=== PATIENT | male | born 1990 | race Caucasian/White ===

== ENCOUNTER 2020-01-09 16:44 | Emergency (ER) | payer BC, OTHER ==
[2020-01-09] MEDS ORDERED: ACETAMINOPHEN 325 MG TABLET PO ONE (18:16)
--- NOTE | 2020-01-09 18:18 | ER Document Report ---
ED Medical Screen (RME) - General Chief Complaint: Leg Pain Stated Complaint: FALL/LEFT LEG PAIN Time Seen by Provider: 01/09/20 18:09 Mode of Arrival: Ambulatory Information source: Patient Notes: 29-year-old male presented to ED for complaint of pain shooting down the left leg from the duncan for the last 2 weeks. He states he also has numbness to the lateral aspect of the leg. He states he fell down some stairs and hit some cigarettes that his mother had on the stairs about 2 weeks ago. He does have redness and swelling to the front of his left leg. 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 He does not smoke he does drink weekly does not use any illicit drugs. 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 He does live with his significant other. Blood pressure and pulse are both elevated I have greeted and performed a rapid initial assessment of this patient. A comprehensive ED assessment and evaluation of the patient, analysis of test results and completion of medical decision making process will be conducted by an additional ED providers. - Related Data Allergies/Adverse Reactions: No Known Allergies Allergy (Verified 01/09/20 18:01) Past Medical History - Social History Frequency of alcohol use: Occasional Drug Abuse: None Physical Exam - Vital signs Vitals: Temp Pulse Resp BP Pulse Ox 98.6 F 111 H 16 175/102 H 97 01/09/20 16:49 01/09/20 16:49 01/09/20 16:49 01/09/20 16:49 01/09/20 16:49 Course - Vital Signs Vital signs: Temp Pulse Resp BP Pulse Ox 98.6 F 111 H 16 175/102 H 97 01/09/20 16:49 01/09/20 16:49 01/09/20 16:49 01/09/20 16:49 01/09/20 16:49
[2020-01-09 19:00] LABS: ABSOLUTE BASOPHILS # (AUTO) 0.1 10^3/uL (0.0-0.2); ABSOLUTE EOSINOPHILS # (AUTO) 0.1 10^3/uL (0.0-0.6); ABSOLUTE LYMPHOCYTES (AUTO) 1.9 10^3/uL (0.5-4.7); ABSOLUTE MONOCYTES (AUTO) 0.7 10^3/uL (0.1-1.4); ABSOLUTE NEUT (AUTO) 7.1 10^3/uL (1.7-8.2); BASOPHILS % (AUTO) 0.8 % (0-2); EOSINOPHILS % (AUTO) 1.5 % (0-6); HEMOGLOBIN 16.2 g/dL (13.5-17.0); LYMPHOCYTES % (AUTO) 19.5 % (13-45); MEAN CORPUSCULAR HEMOGLOBIN 29.6 pg (27.0-33.4); MEAN CORPUSCULAR VOLUME 82 fl (80-97); MONOCYTES % (AUTO) 6.9 % (3-13); PLATELET COUNT 216 10^3/uL (150-450); RED BLOOD COUNT 5.47 10^6/uL (4.35-5.55); RED CELL DISTRIBUTION WIDTH 13.7 % (11.5-14.0); SEGMENTED NEUTROPHILS % (AUTO) 71.3 % (42-78); TOTAL CELLS COUNTED % (AUTO) 100 %; WHITE BLOOD COUNT 9.9 10^3/uL (4.0-10.5)
[2020-01-09 19:08] LABS: ALBUMIN 4.7 g/dL (3.5-5.0); ALKALINE PHOSPHATASE 70 U/L (38-126); ANION GAP 8 (5-19); ASPARTATE AMINO TRANSFERASE 45 U/L (17-59); BILIRUBIN,DIRECT 0.1 mg/dL (0.0-0.4); BILIRUBIN,TOTAL 0.7 mg/dL (0.2-1.3); BLOOD UREA NITROGEN 18 mg/dL (7-20); CALCIUM 9.7 mg/dL (8.4-10.2); CARBON DIOXIDE 25 mmol/L (22-30); CHLORIDE 106 mmol/L (98-107); GLUCOSE 104 mg/dL (75-110); POTASSIUM 4.3 mmol/L (3.6-5.0); TOTAL PROTEIN 7.7 g/dL (6.3-8.2)
--- NOTE | 2020-01-09 19:08 | RADIOLOGY REPORT (SQ) ---
EXAM DESCRIPTION: TIBIA FIBULA LEFT IMAGES COMPLETED DATE/TIME: 01/09/2020 6:47 pm REASON FOR STUDY: Fell about 2 weeks ago fell on some glass downstai COMPARISON: None. NUMBER OF VIEWS: Two views. TECHNIQUE: Two radiographic images acquired of the left tibia and fibula to include the knee and ank le in at least one projection. LIMITATIONS: None. FINDINGS: MINERALIZATION: Normal. BONES: No acute fracture or dislocation. No worrisome bone lesions. SOFT TISSUES: No radiopaque foreign body. OTHER: No other significant finding. IMPRESSION: No fracture or radiopaque foreign body. TECHNICAL DOCUMENTATION: JOB ID: [id number] 2010 [employer]- All Rights Reserved Reading location - IP/workstation name: [email or web address]
[2020-01-09] MEDS ORDERED: DIPH/PERTUSS(ACELL)/TETANUS VAC/PF 0.5 ML SYR (>=10YO) IM ONE (20:14)
[2020-01-09] MEDS ORDERED: CEPHALEXIN 500 MG CAPSULE PO ONE (20:15)
[2020-01-09] MEDS ORDERED: IBUPROFEN 600 MG TABLET PO ONE (20:15)
--- NOTE | 2020-01-09 20:23 | ER Document Report ---
ED Extremity Problem, Lower - General Chief Complaint: Leg Pain Stated Complaint: FALL/LEFT LEG PAIN Time Seen by Provider: 01/09/20 18:09 Primary Care Provider: SACHA SCHROEDER JR, DO [ACTIVE PROVISIONAL STAFF] - Follow up as needed Mode of Arrival: Ambulatory Notes: CHIEF COMPLAINT: Left leg injury 2 weeks ago HPI: 29-year-old male presenting to the emergency department complaining of in jury to the anterior left lower leg 2 weeks ago. Patient slipped on something on the step and struck the anterior portion of the left leg on the step. Patient did sustain an abrasion at the time states he is not up-to-date on his tetanus vaccination. Patient complains of continued pain to the leg with some redness now overlying the anterior leg. No fever. ROS: See HPI - all other systems were reviewed and are otherwise negative Constitutional: no fever Integumentary: + rash Allergy: no hives Musculoskeletal: + extremity pain or swelling Neurological: + numbness/tingling, no weakness MEDICATIONS: I agree with the patient medications as charted by the RN. ALLERGIES: I agree with the allergies as charted by the RN. PAST MEDICAL HISTORY/PAST SURGICAL HISTORY: Reviewed and agree as charted by RN. SOCIAL HISTORY: Reviewed and agree as charted by RN. FAMILY HISTORY: No significant familial comorbid conditions directly related to patient complaint EXAM: Reviewed vital signs as charted by RN. CONSTITUTIONAL: Alert and oriented and responds appropriately to questions. Well-appearing; well-nourished HEAD: Normocephalic; atraumatic EYES: Conjunctivae clear, sclerae non-icteric ENT: normal nose; no rhinorrhea; moist mucous membranes NECK: Supple without meningismus CARD: RRR; no murmurs, no clicks, no rubs, no gallops; symmetric distal pulses RESP: Normal chest excursion without splinting or tachypnea ABD/GI: non-distended BACK: The back appears normal EXT: Normal ROM in all joints; no cyanosis, no effusions, there is slight soft tissue swelling over the anterior left tibial region with a small abrasion present in the mid tibial region. There is tenderness on palpation overlying the anterior left lower leg. There does appear to be some erythema without induration or fluctuance over the anterior leg extending from the knee to the level of the ankle. There is some increased warmth in this area. SKIN: Normal color for age and race; warm; dry; good turgor NEURO: Moves all extremities equally; Motor and sensory function intact PSYCH: The patient's mood and manner are appropriate. Grooming and personal hygiene are appropriate. MDM: 29-year-old male with injury to the anterior left lower leg. - Related Data Allergies/Adverse Reactions: No Known Allergies Allergy (Verified 01/09/20 18:54) Past Medical History - General Information source: Patient - Social History Smoking Status: Never Smoker Frequency of alcohol use: Occasional Drug Abuse: None Family History: Reviewed & Not Pertinent Physical Exam - Vital signs Vitals: Temp Pulse Resp BP Pulse Ox 98.6 F 111 H 16 175/102 H 97 01/09/20 16:49 01/09/20 16:49 01/09/20 16:49 01/09/20 16:49 01/09/20 16:49 Course - Re-evaluation Re-evalutation: 01/09/20 20:[address] Miller. Given the timeframe it is unlikely that patient has compartment syndrome he does have the numbness and tingling in the lateral aspect but has had that since the time of injury. He does not have a boardlike extremity. He does not have significant pain on passive flexion extension of the foot. He does have moderate tenderness over the medial aspect of the tibia with no visible fracture on x-ray but this is the area with overlying erythema. 01/09/20 21:10 CK total is 159. Unlikely this is rhabdo. Will discharge home with pain medication, close orthopedic follow-up, antibiotics for the secondary infection strict return precautions - Vital Signs Vital signs: Temp Pulse Resp BP Pulse Ox 98.6 F 111 H 16 175/102 H 97 01/09/20 16:49 01/09/20 16:49 01/09/20 16:49 01/09/20 16:49 01/09/20 16:49 - Laboratory Result Diagrams: 01/09/20 18:30 01/09/20 18:30 Laboratory results interpreted by me: 01/09/20 18:30 ALT 65 H Discharge - Discharge Clinical Impression: Cellulitis of leg, left Contusion of lower leg, left Qualifiers: Encounter type: initial encounter Qualified Code(s): S80.12XA - Contusion of left lower leg, initial encounter Condition: Stable Disposition: HOME, SELF-CARE Instructions: Cellulitis ([facility]) Additional Instructions: Make sure to ice and elevate the left leg is much as possible. Take the antibiotics as prescribed. Pain medications as prescribed. Follow-up closely with orthopedics for further evaluation and treatment call for appointment. If you have significant worsening of your pain, redness or develop a fever greater than 101 return for reevaluation Prescriptions: Cephalexin Monohydrate [Keflex 500 mg Capsule] 500 mg PO Q6H 7 Days #28 capsule Ibuprofen [Motrin 600 Mg Tablet] 600 mg PO Q6H #15 tablet Oxycodone HCl/Acetaminophen [Percocet 5-325 mg Tablet] 1 tab PO Q4H PRN #10 tab PRN Reason: Referrals: SACHA SCHROEDER JR, DO [ACTIVE PROVISIONAL STAFF] - Follow up as needed
[2020-01-09] MEDS ORDERED: ONDANSETRON 4 MG TAB.RAPDIS PO ONE (21:10)
[2020-01-09] MEDS ORDERED: OXYCODONE-ACETAMINOPHEN 5-325 MG TABLET PO ONE (21:10)
[2020-01-09 21:47] VITALS: BP 151/98
== END 2020-01-09 21:47 | disposition home or self-care (01) ==
LOC: ER 16:44
DX: L03.116 Cellulitis of left lower limb (principal); S80.12XA Contusion of left lower leg, initial encounter; M79.605 Pain in left leg; W01.198A Fall on same level from slipping, tripping and stumbling with subsequent striking against other object, initial encounter; Z23 Encounter for immunization
CPT/HCPCS: 99283; 90471; 36415; 87040; 82550; 85025; 80053; 73590; 90715; S0119

== ENCOUNTER 2020-01-14 11:30 | Emergency (ER) | payer OTHER ==
--- NOTE | 2020-01-14 11:46 | ER Document Report ---
ED Medical Screen (RME) - General Chief Complaint: Leg Pain Stated Complaint: LEG PAIN Time Seen by Provider: 01/14/20 11:44 Notes: HPI: 29-year-old male presenting for evaluation of worsening right leg swelling and redness. Patient states he was seen several days ago placed on antibiotics for possible leg infection after a fall. States pain is improved but the swelling and redness have gotten worse over the lower leg PHYSICAL EXAMINATION: Increased redness to the left lower leg is noted with some edema noted anteriorly I have greeted and performed a rapid initial assessment of this patient. A comprehensive ED assessment and evaluation of the patient, analysis of test results and completion of medical decision making process will be conducted by an additional ED providers. - Related Data Allergies/Adverse Reactions: No Known Allergies Allergy (Verified 01/14/20 11:38) Home Medications: ibuprofen. keflex. percocet Past Medical History - Social History Chew tobacco use (# tins/day): No Frequency of alcohol use: Social Drug Abuse: None Physical Exam - Vital signs Vitals: Temp Pulse Resp BP Pulse Ox 98.3 F 88 16 159/108 H 100 01/14/20 11:38 01/14/20 11:38 01/14/20 11:38 01/14/20 11:38 01/14/20 11:38 Course - Vital Signs Vital signs: Temp Pulse Resp BP Pulse Ox 98.3 F 88 16 159/108 H 100 01/14/20 11:38 01/14/20 11:38 01/14/20 11:38 01/14/20 11:38 01/14/20 11:38
[2020-01-14 12:21] LABS: ABSOLUTE BASOPHILS # (AUTO) 0.1 10^3/uL (0.0-0.2); ABSOLUTE EOSINOPHILS # (AUTO) 0.2 10^3/uL (0.0-0.6); ABSOLUTE LYMPHOCYTES (AUTO) 1.2 10^3/uL (0.5-4.7); ABSOLUTE MONOCYTES (AUTO) 0.7 10^3/uL (0.1-1.4); ABSOLUTE NEUT (AUTO) 4.5 10^3/uL (1.7-8.2); BASOPHILS % (AUTO) 0.9 % (0-2); EOSINOPHILS % (AUTO) 2.6 % (0-6); HEMATOCRIT 43.1 % (37.9-51.0); LYMPHOCYTES % (AUTO) 18.2 % (13-45); MEAN CORPUSCULAR HEMOGLOBIN 28.9 pg (27.0-33.4); MEAN CORPUSCULAR HGB CONC 34.7 g/dL (32.0-36.0); MEAN CORPUSCULAR VOLUME 83 fl (80-97); PLATELET COUNT 255 10^3/uL (150-450); RED BLOOD COUNT 5.19 10^6/uL (4.35-5.55); RED CELL DISTRIBUTION WIDTH 13.5 % (11.5-14.0); SEGMENTED NEUTROPHILS % (AUTO) 67.3 % (42-78); TOTAL CELLS COUNTED % (AUTO) 100 %; WHITE BLOOD COUNT 6.6 10^3/uL (4.0-10.5)
[2020-01-14] MEDS ORDERED: VANCOMYCIN HCL INJ 1000 MG VIAL IV ONE (12:26)
[2020-01-14 12:43] LABS: ALBUMIN 4.5 g/dL (3.5-5.0); ALKALINE PHOSPHATASE 72 U/L (38-126); ANION GAP 8 (5-19); ASPARTATE AMINO TRANSFERASE 61 U/L (17-59); BILIRUBIN,DIRECT 0.1 mg/dL (0.0-0.4); BILIRUBIN,TOTAL 0.6 mg/dL (0.2-1.3); BLOOD UREA NITROGEN 16 mg/dL (7-20); CALCIUM 10.2 mg/dL (8.4-10.2); CARBON DIOXIDE 28 mmol/L (22-30); CHLORIDE 102 mmol/L (98-107); GLUCOSE 125 mg/dL (75-110); POTASSIUM 4.5 mmol/L (3.6-5.0); TOTAL PROTEIN 8.5 g/dL (6.3-8.2)
--- NOTE | 2020-01-14 14:17 | ER Document Report ---
ED Extremity Problem, Lower - General Chief Complaint: Leg Pain Stated Complaint: LEG PAIN Time Seen by Provider: 01/14/20 11:44 Mode of Arrival: Ambulatory Information source: Patient Notes: This 29-year-old male who presented to the emergency room today stating he had discomfort and inflammation to his anterior left lower extremity. This is been ongoing for about 3 weeks when he fell on the stairs. He was seen here last week on Saturday provided some antibiotics he states that the pain is gotten a lot better however it is tender and inflamed TRAVEL OUTSIDE OF THE [place] IN LAST 30 DAYS: No - HPI Patient complains to provider of: Pain, Swelling Occurred: Just prior to arrival Where: Home Onset/Duration: Persistent, Waxing and waning Quality of pain: No pain - Related Data Allergies/Adverse Reactions: No Known Allergies Allergy (Verified 01/14/20 11:38) Home Medications: ibuprofen. keflex. percocet Past Medical History - General Information source: Patient - Social History Smoking Status: Former Smoker Chew tobacco use (# tins/day): No Frequency of alcohol use: Social Drug Abuse: None Family History: Reviewed & Not Pertinent Patient has homicidal ideation: No Review of Systems - Review of Systems Constitutional: No symptoms reported EENT: No symptoms reported Cardiovascular: No symptoms reported Respiratory: No symptoms reported Gastrointestinal: No symptoms reported Genitourinary: No symptoms reported Male Genitourinary: No symptoms reported Musculoskeletal: No symptoms reported Skin: No symptoms reported Hematologic/Lymphatic: No symptoms reported Neurological/Psychological: No symptoms reported Physical Exam - Vital signs Vitals: Temp Pulse Resp BP Pulse Ox 98.3 F 88 16 159/108 H 100 01/14/20 11:38 01/14/20 11:38 01/14/20 11:38 01/14/20 11:38 01/14/20 11:38 Interpretation: Normal - General General appearance: Appears well, Alert - HEENT Head: Normocephalic, Atraumatic Eyes: Normal Pupils: PERRL - Respiratory Respiratory status: No respiratory distress Chest status: Nontender Breath sounds: Normal Chest palpation: Normal - Cardiovascular Rhythm: Regular Heart sounds: Normal auscultation Murmur: No - Abdominal Inspection: Normal Distension: No distension Bowel sounds: Normal Tenderness: Nontender Organomegaly: No organomegaly - Back Back: Normal, Nontender - Extremities General upper extremity: Normal inspection, Nontender, Normal color, Normal ROM, Normal temperature General lower extremity: Normal inspection, Nontender, Normal color, Normal ROM, Normal temperature, Normal weight bearing. No: Deirdre's sign - Neurological Neuro grossly intact: Yes Cognition: Normal Orientation: AAOx4 Aron Coma Scale Eye Opening: Spontaneous [place] Coma Scale Verbal: Oriented [place]ron Coma Scale Motor: Obeys Commands [place] Coma Scale Total: 15 Speech: Normal Motor strength normal: LUE, RUE, LLE, RLE Sensory: Normal - Psychological Associated symptoms: Normal affect, Normal mood - Skin Skin Temperature: Warm Skin Moisture: Dry Skin Color: Normal Course - Re-evaluation Re-evalutation: 01/14/20 14:17 Patient feels well good distal pulses to the affected area the erythemic area is anterior on the lower extremity will be demarcated with a black magic marker for follow-up follow-up with PMD in 3 to 5 days return here for absolutely any change worsening condition. - Vital Signs Vital signs: Temp Pulse Resp BP Pulse Ox 98.3 F 88 16 159/108 H 100 01/14/20 11:38 01/14/20 11:38 01/14/20 11:38 01/14/20 11:38 01/14/20 11:38 - Laboratory Result Diagrams: 01/14/20 12:09 01/14/20 12:09 Laboratory results interpreted by me: 01/14/20 12:09 Glucose 125 H AST 61 H ALT 116 H Total Protein 8.5 H Discharge - Discharge Clinical Impression: Cellulitis Qualifiers: Site of cellulitis: other site Qualified Code(s): L03.818 - Cellulitis of other sites Condition: Good Disposition: HOME, SELF-CARE Instructions: Cellulitis ([facility]) Additional Instructions: Warm compresses 4-5 times a day. Follow-up with PMD in 2 days for recheck. If unable to follow-up with PMD return here for recheck in 2 days. Rest ice elevate. Prescriptions: Sulfamethoxazole/Trimethoprim [Septra-Ds 800-160 mg Tablet] 1 tab PO BID #20 tablet
[2020-01-14 14:37] VITALS: BP 137/93
--- NOTE | 2020-01-14 14:54 | RADIOLOGY REPORT (SQ) ---
EXAM DESCRIPTION: VENOUS UNILATERAL LOWER IMAGES COMPLETED DATE/TIME: 01/14/2020 2:28 pm REASON FOR STUDY: pain and swelling COMPARISON: None. TECHNIQUE: Dynamic and static hancock scale and color images acquired of the left leg venous system. Se lected spectral images acquired with additional compression and augmentation maneuvers. The contralat eral common femoral vein and saphenofemoral junction were also imaged. Images stored on PACS. LIMITATIONS: None. FINDINGS: COMMON FEMORAL: Normal phasicity, compression and augmentation. No visualized echogenic ma terial on hancock scale. No defects on color images. FEMORAL: Normal compression and augmentation. No visualized echogenic material on hancock scale. No defe cts on color images. POPLITEAL: Normal compression, augmentation. No visualized echogenic material on hancock scale. No defec ts on color images. CALF VESSELS: Normal compression, augmentation. No visualized echogenic material on hancock scale. No de fects on color images. GSV and SSV: Normal compression, augmentation. No visualized echogenic material on hancock scale. No def ects on color images. ANY DEEP VENOUS INSUFFICIENCY: Not evaluated. ANY EVIDENCE OF POPLITEAL CYST: No. OTHER: No other significant finding. CONTRALATERAL COMMON FEMORAL VEIN AND SAPHENOFEMORAL JUNCTION: Normal phasicity, compression and augmentation. No visualized echogenic material on hancock scale. No de fects on color images. IMPRESSION: NO EVIDENCE OF DVT OR SVT IN THE LEFT LEG. TECHNICAL DOCUMENTATION: JOB ID: [id number] 2010 [employer]- All Rights Reserved Reading location - IP/workstation name: [email or web address]
== END 2020-01-14 14:37 | disposition home or self-care (01) ==
LOC: ER 11:30
DX: L03.818 Cellulitis of other sites (principal); M79.605 Pain in left leg; W10.9XXA Fall (on) (from) unspecified stairs and steps, initial encounter; Z79.899 Other long term (current) drug therapy
CPT/HCPCS: 99284; 96365; 36415; 87040; 85025; 80053; 93971; J3370; 87150

== ENCOUNTER 2020-01-16 10:20 | Emergency (ER) | payer OTHER ==
--- NOTE | 2020-01-16 10:34 | ER Document Report ---
HPI - HPI Patient complains to provider of: Recheck Time Seen by Provider: 01/16/20 10:31 Onset: Last week - This 29-year-old male that I saw 2 days ago for repeat visit of a cellulitis to his left lower extremity. He had just changed some antibiotics was beginning to get better but we want to be careful to make sure he had a good follow-up and I requested that he follow-up here today for reevaluation. Quality of pain: Achy Associated Symptoms: None Exacerbated by: Denies Relieved by: Denies - REPRODUCTIVE Reproductive: DENIES: : Past Medical History - General Information source: Patient - Social History Smoking Status: Never Smoker Cigarette use (# per day): No Chew tobacco use (# tins/day): No Smoking Education Provided: No Frequency of alcohol use: None Drug Abuse: None Family History: Reviewed & Not Pertinent Vertical Provider Document - CONSTITUTIONAL Agree With Documented VS: Yes - INFECTION CONTROL TRAVEL OUTSIDE OF THE [place] IN LAST 30 DAYS: No - HEENT HEENT: Atraumatic, Conjuctival Injection, Normocephalic, PERRLA - NECK Neck: Normal Inspection - RESPIRATORY Respiratory: Breath Sounds Normal - CARDIOVASCULAR Cardiovascular: Regular Rate, Regular Rhythm - GI/ABDOMEN Gastrointestinal: Abdomen Soft, Abdomen Non-Tender - REPRODUCTIVE Male Genitalia: Normal Inspection - BACK Back: Normal Inspection - MUSCULOSKELETAL/EXTREMETIES Musculoskeletal/Extremeties: MAEW - NEURO Level of Consciousness: Awake, Alert, Appropriate Course - Re-evaluation Re-evalutation: 01/16/20 10:32 The wound looks grossly better he has no fever no nausea no vomiting no drainage. The redness is centralized he has no fluctuance in the wound site there is scant drainage coming from the center puncture patient feels better he has no pain currently. Discharge - Discharge Clinical Impression: Encounter for wound re-check Condition: Good Disposition: HOME, SELF-CARE Additional Instructions: 1 compresses to the affected area 4-5 times a day. Rest elevate compress. Follow-up with PMD in 3 to 4 days. Return to emergency room for any change worsening condition. Forms: Return to Work
[2020-01-16 10:40] VITALS: BP 164/95
== END 2020-01-16 10:40 | disposition home or self-care (01) ==
LOC: ER 10:20
DX: L03.116 Cellulitis of left lower limb (principal)
CPT/HCPCS: 99282